=== PATIENT | male | born 1960 | race Caucasian/White ===

== ENCOUNTER 2021-12-25 00:24 | Outpatient (CLI) | payer MEDICAID, SELFPAY ==
--- NOTE | 2021-12-25 08:00 | DI.MRI_ITS ---
Exam(s) MR CERVICAL SPINE WO EXAM: MR CERVICAL SPINE WO CLINICAL HISTORY: right upper extremity pain,CERVICAL RADICULOPATHY,M54.12 TECHNIQUE: Multiplanar multisequence MRI of the cervical spine was performed without intravenous con trast. COMPARISON: No exams were available for comparison FINDINGS: Exam is limited by patient motion. BONES: Vertebral body heights are maintained. Intervertebral disc spaces are normal. Alignment is nor mal. Bone marrow signal intensity is within normal limits. CERVICAL CORD: Craniovertebral junction is unremarkable. The cervical cord is normal size and signal intensity. SOFT TISSUES: Unremarkable. C2-3: No disc herniation or bulge is identified. C3-4: No disc herniation or bulge is identified. C4-5: No disc herniation or bulge is identified. C5-6: Minimal endplate osteophytes. Small right paracentral disc protrusion without definite impinge ment on the cord.. No visible neural foraminal narrowing. C6-7: Minimal endplate osteophytes. Minimal disc bulging. No visible neural foraminal narrowing. C7-T1: No disc herniation or bulge is identified. IMPRESSION: Small right paracentral disc protrusion at C5-6. DATA REPOSITORY:
== END 2021-12-25 00:44 ==
PROVIDERS: Visit Provider Internal Medicine
DX: M54.12 Radiculopathy, cervical region (principal); M79.601 Pain in right arm; M50.222 Other cervical disc displacement at C5-C6 level
CPT/HCPCS: 72141

== ENCOUNTER 2022-04-04 12:25 | Outpatient (CLI) | payer MEDICAID, SELFPAY ==
--- NOTE | 2022-04-04 06:00 | DI.RAD_ITS ---
Exam(s) XR PAIN CLINIC CERVICAL SP 2V EXAM: XR PAIN CLINIC CERVICAL SP 2V CLINICAL HISTORY: Dx: Cervical Radiculopathy TECHNIQUE: 2D and realtime digital imaging was performed. CONTRAST MATERIAL: Refer to procedure report. COMPARISON: No exams were available for comparison FINDINGS: Fluoroscopy was provided for Dr. Yoo during the performance of a cervical epidural steroid injectio n. Please refer to the procedure report for complete details. Ka,r=14.3 mGy IMPRESSION:
[2022-04-04 12:43] VITALS: BP 119/81; PULSE 100; RESP 20; TEMP 36.7; O2SAT 98
[2022-04-04] MEDS: Omnipaque 240 MG/ML 50 ML BTL IJ (13:13)
[2022-04-04] MEDS: Dexamethasone Sod. Phos./Pres-Free 10 MG/ML VIAL IJ (13:13)
--- NOTE | 2022-04-04 13:14 | PDOC.PAIN_ITS ---
Pain Clinic Procedure Note Procedure Note Procedure Note: Cervical Epidural Steroid Injection Martin Roy has been referred to the [facility] for interlaminar cervical epidural steroid injection. COMMENTS: I previously evaluated him in the clinic. Last Hem A1c was 7.7 (03/26/22). Dx: Cervical radiculopathy Pre-procedure pain VAS: 6/10 Patient was interviewed and the medical record reviewed. There were no medical, pharmacologic, radiographic or other structural contraindications to attempting fluoroscopically guided epidural steroid injection. Risks and expected side effects as well as potential benefit of the procedure were reviewed and voiced concerns addressed. The printed consent form was signed and witnessed. Standard time-out procedure was performed. The patient was placed in the prone position on the fluoroscopy table and automated blood pressure cuff and pulse oximeter applied. The skin entry point for entering the epidural space by a midline C7-T1 interlaminar approach was identified under fluoroscopy and marked. Following thorough Chlorhexadine preparation of the skin and draping and 1% lidocaine infiltration of the skin entry point and subcutaneous tissues, an 18 gauge Tuohy needle was placed under fluoroscopic guidance and with loss of resistance technique into the epidural space. Upon needle placement and loss of resistance there were no paresthesiae or return of blood or CSF through the needle. 1ml of Omnipaque 240 were injected with clear epidural spread in the A/P, oblique views. 15mg of preservative-free Dexamethasone with 1ml sterile normal saline were injected through the needle with no unusual discomfort expressed. The needle was removed without difficulty. A bandage was placed. Vital signs were stable throughout the procedure and were as recorded in the docflowsheet by the nursing staff. If given, dosages of intravenous drugs for anxiolysis and analgesia were documented in MAR. Follow up plans and appointments were discussed. Post procedure instruction was given as documented in nursing documentation and having met discharge criteria and was discharged from the [facility]. COMMENTS: Post-procedure pain VAS = 2/10. Martin Yoo DO, MPH [facility] CC:
[2022-04-04 13:23] VITALS: BP 124/81; PULSE 96; RESP 19; O2SAT 98
== END 2022-04-04 12:26 | disposition home or self-care (01) ==
PROVIDERS: Visit Provider Preventive Medicine Occupational Medicine
DX: M54.12 Radiculopathy, cervical region (principal)
CPT/HCPCS: 62321; 72040; Q9967

== ENCOUNTER → 2022-11-19 13:48 | Outpatient (BNVA) | payer MEDICARE, MEDICAID, SELFPAY | PROVIDERS: Visit Provider Psychiatry & Neurology Neurology | DX: G56.03 Carpal tunnel syndrome, bilateral upper limbs (principal); G56.23 Lesion of ulnar nerve, bilateral upper limbs; M54.2 Cervicalgia; G89.29 Other chronic pain | CPT/HCPCS: 95886; 95911 ==